=== PATIENT | male | born 1980 | race Hispanic/Latino ===

== ENCOUNTER 2016-05-04 23:39 | Emergency (ER) | payer OTHER ==
[~2016-05-04] VITALS: Ht 167.6 cm; Wt 80.5 kg
[~2016-05-04 23:39] MED LIST: NAPR500T PO; NOMED; OMEP20TA86 PO
[2016-05-04 23:43] VITALS: BP 131/83; PULSE 72; RESP 16; O2SAT 96
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
== END 2016-05-05 00:18 | disposition home or self-care (01) ==
LOC: SED 23:39
DX: S01.81XD Laceration without foreign body of other part of head, subsequent encounter (principal); S00.83XD Contusion of other part of head, subsequent encounter; W20.8XXA Other cause of strike by thrown, projected or falling object, initial encounter; Y93.H9 Activity, other involving exterior property and land maintenance, building and construction; Y92.89 Other specified places as the place of occurrence of the external cause; Y99.8 Other external cause status